=== PATIENT | male | born 1935 | race Caucasian/White ===

== ENCOUNTER 2017-01-25 01:26 | Emergency (ER) | payer MEDICARE, OTHER ==
[2017-01-25 01:46] VITALS: BP 174/89
--- NOTE | 2017-01-25 01:51 | EDM.PDOC ---
ED HPI GENERAL MEDICAL PROBLEM - General Chief Complaint: Gastrointestinal Problem Stated Complaint: CONSTIPATION Time Seen by Provider: 01/25/17 01:32 Source of Information: Reports: Patient, Family () History Limitations: Reports: No Limitations - History of Present Illness INITIAL COMMENTS - FREE TEXT/NARRATIVE: Patient presents with constipation and fecal obstruction. He has gone three days without a bowel movement and is getting very uncomfortable. It also seems to be making urination more difficult. He has some fullness and discomfort in lower abdomen. He denies fever. He has been taking hydrocodone which he thinks is the problem. He drank a bottle of mag citrate today but hasn't passed stool. - Related Data Allergies Allergy/AdvReac Type Severity Reaction Status Date / Time gluten Allergy Other Verified 01/13/16 12:46 Home Meds: Home Meds Omeprazole 20 mg PO Q48H 03/23/14 [History] Cholecalciferol (Vitamin D3) [Vitamin D] 5,000 unit PO DAILY 01/13/16 [History] Gabapentin [Neurontin] 300 mg PO TID 01/13/16 [History] Lipase/Protease/Amylase [Zenpep DR 25,000 Unit] 3 cap PO TIDMEALS 01/13/16 [ History] Magnesium Oxide [Magnesium] 1 tab PO DAILY 01/13/16 [History] oxyCODONE HCl/Acetaminophen [Percocet 10-325 mg Tablet] 1 tab PO Q6H PRN [History] Sertraline HCl [Zoloft] 100 mg PO DAILY #90 tablet 01/14/16 [Rx] Past Medical History HEENT History: Reports: Impaired Vision, Sinusitis Respiratory History: Reports: Sleep Apnea, Other (See Below) Other Respiratory History: Sinus Gastrointestinal History: Reports: Chronic Constipation, Pancreatitis Genitourinary History: Reports: Prostate Disorder, Other (See Below) Other Genitourinary History: urinary frequency Musculoskeletal History: Reports: Arthritis, Gout, Osteoarthritis Psychiatric History: Reports: Anxiety - Infectious Disease History Infectious Disease History: Reports: Measles - Past Surgical History GI Surgical History: Reports: Cholecystectomy, Colonoscopy, Other (See Below) Musculoskeletal Surgical History: Reports: Carpal Tunnel, Shoulder Replacement Social & Family History - Family History HEENT: Reports: Cataract Musculoskeletal: Reports: Arthritis Oncologic: Reports: Bone, Lung, Other (See Below) Other Oncologic Family History: uncle several years ago - Tobacco Use Smoking Status *Q: Never Smoker Used Tobacco, but Quit: Yes Month Tobacco Last Used: 1949's Second Hand Smoke Exposure: No - Alcohol Use Days Per Week of Alcohol Use: 1 Number of Drinks Per Day: 1 Total Drinks Per Week: 1 - Recreational Drug Use Recreational Drug Use: No - Living Situation & Occupation Living situation: Reports: , with Spouse Occupation: Retired ED ROS GENERAL - Review of Systems Review Of Systems: See Below Constitutional: Denies: Fever, Weakness HEENT: Reports: No Symptoms Respiratory: Denies: Shortness of Breath Cardiovascular: Denies: Chest Pain, Lightheadedness, Syncope GI/Abdominal: Reports: Constipation. Denies: Diarrhea, Nausea, Vomiting : Reports: Urinary Retention. Denies: Dysuria Musculoskeletal: Reports: No Symptoms Skin: Denies: Cyanosis, Jaundice, Mottled, Pallor, Diaphoresis Neurological: Reports: Confusion (his says that tonight he has been a little confused and that this happened in the past when he had bad constipation and he took Miralax.). Denies: Seizure, Syncope, Trouble Speaking, Difficulty Walking, Weakness Psychiatric: Denies: Agitation, Anxiety ED EXAM, GI/ABD - Physical Exam Exam: See Below Exam Limited By: No Limitations General Appearance: Alert, WD/WN, No Apparent Distress Eyes: Bilateral: Normal Appearance, EOMI Ears: Normal External Exam, Hearing Grossly Normal Nose: Normal Inspection, No Blood Throat/Mouth: Normal Lips, Normal Voice, No Airway Compromise Head: Atraumatic, Normocephalic Neck: Full Range of Motion Respiratory/Chest: No Respiratory Distress, Lungs Clear, Normal Breath Sounds Cardiovascular: Regular Rate, Rhythm, No Murmur GI/Abdominal: Normal Bowel Sounds, Tenderness (across low abdomen with some distention) Rectal (Males) Exam: Bloody Stool (slightly blood tinged right at rectum but further up the blood was not evident), Decreased Rectal Tone (mildly), Fecal Impaction, Hemorrhoids, Other (the digital extraction was quite uncomfortable for the patient and I wasn't able to remove sufficient stool to examine prostate ; then he wanted to try to go to bathroom to pass stool but wasn't able; we proceeded with enema at that point.) Extremities: Normal Range of Motion Neurological: Alert, Oriented, No Motor/Sensory Deficits Psychiatric: Normal Affect, Normal Mood Skin Exam: Warm, Dry, Intact, Normal Color, No Rash Course - Re-Assessments/Exams Free Text/Narrative Re-Assessment/Exam: 01/25/17 02:35 With the enema patient was eventually able to move a large amount of firm chunks of stool and felt much better. There was some bleeding evidently from internal hemorrhoids but minimal. Patient remained stable throughout ER course and was discharged to home. He has an appointment with Dr. Sy in the next few days. Departure - Departure Time of Disposition: 02:33 Disposition: Home, Self-Care 01 Condition: good Clinical Impression: Constipation due to pain medication, Fecal impaction in rectum - Discharge Information Instructions: Constipation, Adult, [id number] Forms: ED Department Discharge Additional Instructions: 1. Continue the metamucil and drink 8 cups of water daily. 2. Follow up with Dr. Sy in a few days to recheck and discuss recommendations for your constipation. 3. Return to ER as needed.
[2017-01-25] MEDS ORDERED: Ondansetron 4 MG Tab.DIS PO ONE (02:17)
[2017-01-25] MEDS ORDERED: Ondansetron 4 MG Tab.DIS ONE (02:18)
== END 2017-01-25 02:40 | disposition home or self-care (01) ==
LOC: KA.ED 01:26
DX: K59.03 Drug induced constipation (principal); K56.41 Fecal impaction; M19.90 Unspecified osteoarthritis, unspecified site; F41.9 Anxiety disorder, unspecified; Z91.048 Other nonmedicinal substance allergy status; Z79.899 Other long term (current) drug therapy; Z90.49 Acquired absence of other specified parts of digestive tract
CPT/HCPCS: 99283; A9270; 99282

== ENCOUNTER 2017-12-30 17:10 | Emergency (ER) | payer MEDICARE, OTHER ==
[2017-12-30 17:20] VITALS: BP 136/74
[2017-12-30] MEDS ORDERED: Sodium Chloride 0.9% 5 ML Syringe FLUSH PRN (17:20)
--- NOTE | 2017-12-30 17:29 | EDM.PDOC ---
ED HPI GENERAL MEDICAL PROBLEM - General Chief Complaint: Abdominal Pain Stated Complaint: ABDOMINAL PAIN Time Seen by Provider: 12/30/17 17:19 Source of Information: Reports: Patient, Family History Limitations: Reports: No Limitations - History of Present Illness INITIAL COMMENTS - FREE TEXT/NARRATIVE: Onset of this event Sunday night after eating coleslaw made by his . She had eaten some of it but not to the same extent. 1 questions he states he's had several events of this undergoing multiple colonoscopies as well as scans with no significant findings. He denies fever or chills. He experienced normal bowel movement thinking he was possibly getting constipated so he use MiraLAX which then lead to 2 or 3 loose diarrhea type stools. Pain has persisted for the most part steady since Sunday leading to poor intake of food and fluid. Denies any urination problems. Has had previous workups with no significant findings. Pain has been predominant to the left lower quadrant with minimal radiation. Onset: Gradual Onset Date: 12/28/17 Onset Time: 18:00 Duration: Day(s): Location: Reports: Abdomen Quality: Reports: Pressure, Same as Previous Episode Severity: Moderate Improves with: Reports: None Worsens with: Reports: Eating, Movement Abdomen Pain Score (Numeric/FACES): 10 - Related Data Allergies Allergy/AdvReac Type Severity Reaction Status Date / Time gluten Allergy Other Verified 01/25/17 07:14 Home Meds: Home Meds Omeprazole 20 mg PO Q48H 03/23/14 [History] Gabapentin [Neurontin] 300 mg PO TID 01/13/16 [History] Polyethylene Glycol 3350 [MiraLAX] 17 gm PO DAILY PRN 12/30/17 [History] oxyCODONE 1 - 1.5 tab PO DAILY PRN 12/30/17 [History] Past Medical History HEENT History: Reports: Impaired Vision, Sinusitis Respiratory History: Reports: Sleep Apnea, Other (See Below) Other Respiratory History: Sinus Gastrointestinal History: Reports: Chronic Constipation, Pancreatitis, Other ( See Below) (Recurrent abdominal discomfort) Genitourinary History: Reports: Prostate Disorder, Other (See Below) Other Genitourinary History: urinary frequency Musculoskeletal History: Reports: Arthritis, Gout, Osteoarthritis Psychiatric History: Reports: Anxiety - Infectious Disease History Infectious Disease History: Reports: Measles - Past Surgical History Head Surgeries/Procedures: Reports: None HEENT Surgical History: Reports: None Cardiovascular Surgical History: Reports: None Respiratory Surgical History: Reports: None GI Surgical History: Reports: Cholecystectomy, Colonoscopy, EGD, Other (See Below) Musculoskeletal Surgical History: Reports: Carpal Tunnel, Shoulder Replacement - Past Imaging History Past Imaging History: Reports: CAT Scan, MRI Social & Family History - Family History HEENT: Reports: Cataract Musculoskeletal: Reports: Arthritis Oncologic: Reports: Bone, Lung, Other (See Below) Other Oncologic Family History: uncle several years ago - Tobacco Use Smoking Status *Q: Never Smoker Used Tobacco, but Quit: Yes Month/Year Tobacco Last Used: Second Hand Smoke Exposure: No - Caffeine Use Caffeine Use: Reports: None - Alcohol Use Days Per Week of Alcohol Use: 1 Number of Drinks Per Day: 1 Total Drinks Per Week: 1 - Recreational Drug Use Recreational Drug Use: No - Living Situation & Occupation Living situation: Reports: , with Spouse Occupation: Retired ED ROS GENERAL - Review of Systems Review Of Systems: See Below Constitutional: Reports: No Symptoms HEENT: Reports: No Symptoms Respiratory: Reports: No Symptoms Cardiovascular: Reports: No Symptoms Endocrine: Reports: No Symptoms GI/Abdominal: Reports: Abdominal Pain, Constipation, Diarrhea. Denies: Nausea, Stool Incontinence, Vomiting : Reports: No Symptoms Musculoskeletal: Reports: No Symptoms Skin: Reports: No Symptoms Neurological: Reports: No Symptoms Psychiatric: Reports: No Symptoms Hematologic/Lymphatic: Reports: No Symptoms Immunologic: Reports: No Symptoms ED EXAM, GI/ABD - Physical Exam Exam: See Below Text/Narrative:: Moderate distress stating this is very similar to previous episodes. states he did eat coleslaw previously which had caused irritation that resolved. Has been placed on oxycodone by Dr. Yossi Torres which led to constipation then was using stool softener. Barry somewhat constipated today had bowel movement was concerned was becoming constipated at which time he took MiraLAX which then led to diarrhea of 3 events. Denies Urinary issues or change in abdominal pressure pain with bowel movement urination or prior to either event Exam Limited By: No Limitations General Appearance: Alert, WD/WN, Mild Distress Ears: Normal External Exam, Normal Canal Nose: Normal Inspection, Normal Mucosa Throat/Mouth: Normal Inspection, Normal Lips, Normal Oropharynx Head: Atraumatic, Normocephalic Neck: Normal Inspection Respiratory/Chest: No Respiratory Distress, Lungs Clear Cardiovascular: Normal Peripheral Pulses, No Murmur GI/Abdominal Exam: Soft, No Distention, Tender (Tenderness is noted to the left lower quadrant nonradiating. Remainder of abdomen is benign). No: Non-Tender, Distended, Rigid, Rebound (Male) Exam: Deferred Back Exam: Normal Inspection Extremities: Normal Inspection, Normal Range of Motion Neurological: Alert, Oriented, CN II-XII Intact Psychiatric: Normal Affect Skin Exam: Warm, Dry, Intact Course - Vital Signs Last Recorded V/S: Last Vital Signs Temp 37.3 C 12/30/17 17:14 Pulse 79 12/30/17 17:14 Resp 22 H 12/30/17 17:14 BP 136/74 12/30/17 17:14 Pulse Ox 97 12/30/17 17:14 - Orders/Labs/Meds Orders: Active Orders 24 hr Category Date Time Status Abdomen Pelvis w Cont [CT] Stat Exams 12/30/17 17:21 Taken Sodium Chloride 0.9% [Normal Saline] 1,000 ml Med 12/30/17 18:00 Active IV ASDIRECTED Sodium Chloride 0.9% [Syrex Flush] Med 12/30/17 17:20 Active 5 ml FLUSH Q8HR PRN Saline Lock Insert [OM.PC] Routine Oth 12/30/17 17:20 Ordered Medication Orders Sodium Chloride (Normal Saline) 1,000 mls @ 150 mls/hr IV ASDIRECTED ADRIANE Last Admin: 12/30/17 17:50 Dose: 150 mls/hr Sodium Chloride (Syrex Flush) 5 ml FLUSH Q8HR PRN PRN Reason: Keep Vein Open Labs: Laboratory Tests 12/30/17 12/30/17 12/30/17 Range/Units 17:53 17:53 17:53 WBC 8.1 (5.0-10.0) 10^3/uL RBC 4.89 (4.50-6.00) 10^6/uL Hgb 15.6 D (13.0-17.0) g/dL Hct 46.6 (40.0-52.0) % MCV 95.4 H (82.0-92.0) fL MCH 32.0 H (27.0-31.0) pg MCHC 33.5 (32.0-36.0) g/dL RDW 12.9 (11.5-14.5) % Plt Count 155 (150-300) 10^3/uL MPV 7.7 (7.4-10.4) fL Neut % (Auto) 61.4 (50.0-70.0) % Lymph % (Auto) 30.5 (20.0-40.0) % [place] % (Auto) 6.6 (2.0-8.0) % Eos % (Auto) 0.6 L (1.0-3.0) % Baso % (Auto) 0.9 (0.0-1.0) % Neut # (Auto) 5.0 (2.5-7.0) 10^3/uL Lymph # (Auto) 2.5 (1.0-4.0) 10^3/uL [place] # (Auto) 0.5 (0.1-0.8) 10^3/uL Eos # (Auto) 0.0 L (0.1-0.3) 10^3/uL Baso # (Auto) 0.1 (0.0-0.1) 10^3/uL Sodium 144 (136-145) mmol/L Potassium 4.1 (3.3-5.3) mmol/L Chloride 104 (98-115) mmol/L Carbon Dioxide 25.9 (21.0-32.0) mmol/L BUN 16 (6-25) mg/dL Creatinine 1.03 (0.51-1.17) mg/dL Est Cr Clr Drug Dosing 57.09 mL/min Estimated GFR (MDRD) > 60 mL/min Glucose 125 H (70-110) mg/dL Lactic Acid 1.9 (0.4-2.0) mmol/L Calcium 9.2 (8.7-10.3) mg/dL Total Bilirubin 0.9 (0.2-1.0) mg/dL AST 21 (15-37) U/L ALT 28 (12-78) U/L Alkaline Phosphatase 74 (46-116) IU/L Total Protein 7.7 (6.4-8.2) g/dL Albumin 3.96 (3.00-4.80) g/dL Amylase 44 (25-125) U/L Lipase 52 L (73-393) U/L Meds: Medications Generic Name Dose Route Start Last Admin Trade Name Freloki PRN Reason Stop Dose Admin Sodium Chloride 1,000 mls @ 150 mls/hr 12/30/17 18:00 12/30/17 17:50 Normal Saline IV 150 mls/hr ASDIRECTED ADRIANE Administration Sodium Chloride 5 ml 12/30/17 17:20 Syrex Flush FLUSH Q8HR PRN Keep Vein Open Discontinued Medications Generic Name Dose Route Start Last Admin Trade Name Freq PRN Reason Stop Dose Admin Morphine Sulfate 4 mg 12/30/17 18:02 12/30/17 18:10 Morphine IVPUSH 12/30/17 18:03 4 mg ONETIME ONE Administration Morphine Sulfate 4 mg 12/30/17 19:43 12/30/17 20:00 Morphine IVPUSH 12/30/17 19:44 4 mg ONETIME ONE Administration - Re-Assessments/Exams Free Text/Narrative Re-Assessment/Exam: 12/30/17 18:09 Ambulated to the bathroom to urinate states his pain improved slightly. Ambulated back with no difficulty and is again sipping on oral contrast. Gives rating of 8 on scale of 10 for pain. Is able to converse freely and is seated with no significant motion colicky discomfort. Free Text/Narrative Re-Assessment/Exam: 12/30/17 19:17 Pain improved at this time prior to transport to CT scanner to a 3 or 4. Assessed to be in the same left lower quadrant but only noted with deep palpation. Free Text/Narrative Re-Assessment/Exam: 12/30/17 20:23 Pain continued to improve/stabilize and when discussing report of no significant findings was offered hospitalization. She declines we'll continue with oral meds and contact Dr. Yossi torres office in the morning Departure - Departure Time of Disposition: 20:26 Disposition: Home, Self-Care 01 Condition: Good Clinical Impression: Abdominal pain - Discharge Information Instructions: Constipation, Adult, [id number] Forms: ED Department Discharge Care Plan Goals: Drink more water. CAT scan is provided for you. We will send copies of all lab work and this report to Dr. Torres office. Continue with your oral pain medicine but make sure you take stool softener or high fiber diet along with increased water intake Continue your medications with plenty of water at all times. - Problem List & Annotations (1) Abdominal pain SNOMED Code(s): 98508832 Code(s): R10.9 - UNSPECIFIED ABDOMINAL PAIN Status: Acute Priority: High Current Visit: Yes Qualifiers: Abdominal location: left lower quadrant Qualified Code(s): R10.32 - Left lower quadrant pain - Problem List Review Problem List Initiated/Reviewed/Updated: Yes - My Orders Last 24 Hours: My Active Orders 12/30/17 17:20 Sodium Chloride 0.9% [Syrex Flush] 5 ml FLUSH Q8HR PRN Saline Lock Insert [OM.PC] Routine 12/30/17 17:21 Abdomen Pelvis w Cont [CT] Stat 12/30/17 18:00 Sodium Chloride 0.9% [Normal Saline] 1,000 ml IV ASDIRECTED - Assessment/Plan Last 24 Hours: My Active Orders 12/30/17 17:20 Sodium Chloride 0.9% [Syrex Flush] 5 ml FLUSH Q8HR PRN Saline Lock Insert [OM.PC] Routine 12/30/17 17:21 Abdomen Pelvis w Cont [CT] Stat 12/30/17 18:00 Sodium Chloride 0.9% [Normal Saline] 1,000 ml IV ASDIRECTED Plan: Drink more water. CAT scan is provided for you. We will send copies of all lab work and this report to Dr. Torres office. Continue with your oral pain medicine but make sure you take stool softener or high fiber diet along with increased water intake.
[2017-12-30] MEDS: Sodium Chloride 0.9% 1,000 ML IV SCH (17:50)
[2017-12-30] MEDS: Morphine 4 MG/ML Syringe IVPUSH ONE ×2 (18:10→20:00)
[2017-12-30 18:33] LABS: CHLORIDE,CL 104 mmol/L (98-115); SODIUM,NA 144 mmol/L (136-145)
[2017-12-30] MEDS ORDERED: Iopamidol 612 MG/ML 75 ML Bottle IV ONE (19:10)
[2017-12-31] MEDS: Sodium Chloride 0.9% 50 ML IV SCH (09:18)
[2017-12-31] MEDS: Iopamidol 612 MG/ML 75 ML Bottle IV ONE (09:18)
== END 2017-12-30 20:25 | disposition home or self-care (01) ==
LOC: KA.ED 17:10
DX: R10.32 Left lower quadrant pain (principal); Z91.048 Other nonmedicinal substance allergy status; Z79.899 Other long term (current) drug therapy; Z87.891 Personal history of nicotine dependence
CPT/HCPCS: 74177; 80053; 82150; 83605; 83690; 85025; 96361; 96374; 96376; 99284; J2270; J7030; J7050; Q9967

== ENCOUNTER 2018-04-20 20:19 | Emergency (ER) | payer MEDICARE, OTHER ==
[2018-04-20 20:26] VITALS: BP 140/60
[2018-04-20] MEDS: Cephalexin 250 MG Cap PO ONE ×2 (20:53→21:03)
--- NOTE | 2018-04-20 20:59 | EDM.PDOC ---
ED HPI GENERAL MEDICAL PROBLEM - General Chief Complaint: General Stated Complaint: ?INFECTION Time Seen by Provider: 04/20/18 20:51 Source of Information: Reports: Patient History Limitations: Reports: No Limitations - History of Present Illness INITIAL COMMENTS - FREE TEXT/NARRATIVE: Patient is an 83-year-old gentleman who presents to the emergency department this evening with a complaint of lower back incision site redness. Patient states that he had an electrical stimulation pain device implanted 3 weeks ago in lower back. He noticed a little more discomfort 2 days ago and some redness developed around the incision sites. He spoke to the surgical physician restaurant assistant manager today and was advised to present to emergency department to have it evaluated. Patient denies fever, trauma to site, nausea, vomiting or rash. Onset: Gradual Duration: Day(s): Location: Reports: Back Quality: Reports: Ache Severity: Mild Improves with: Reports: None Worsens with: Reports: None Associated Symptoms: Reports: No Other Symptoms. Denies: Fever/Chills - Related Data Allergies Allergy/AdvReac Type Severity Reaction Status Date / Time gluten Allergy Other Verified 04/20/18 20:32 Home Meds: Home Meds Omeprazole 20 mg PO DAILY 03/23/14 [History] Gabapentin [Neurontin] 300 mg PO TID 01/13/16 [History] Polyethylene Glycol 3350 [MiraLAX] 17 gm PO DAILY 12/30/17 [History] oxyCODONE 1 - 1.5 tab PO DAILY PRN 12/30/17 [History] Past Medical History HEENT History: Reports: Impaired Vision, Sinusitis Respiratory History: Reports: Sleep Apnea, Other (See Below) Other Respiratory History: Sinus Gastrointestinal History: Reports: Chronic Constipation, Pancreatitis, Other ( See Below) (Recurrent abdominal discomfort) Genitourinary History: Reports: Prostate Disorder, Other (See Below) Other Genitourinary History: urinary frequency Musculoskeletal History: Reports: Arthritis, Gout, Osteoarthritis Psychiatric History: Reports: Anxiety - Infectious Disease History Infectious Disease History: Reports: Measles - Past Surgical History Head Surgeries/Procedures: Reports: None HEENT Surgical History: Reports: None Cardiovascular Surgical History: Reports: None Respiratory Surgical History: Reports: None GI Surgical History: Reports: Cholecystectomy, Colonoscopy, EGD, Other (See Below) Musculoskeletal Surgical History: Reports: Carpal Tunnel, Shoulder Replacement - Past Imaging History Past Imaging History: Reports: CAT Scan, MRI Social & Family History - Family History HEENT: Reports: Cataract Musculoskeletal: Reports: Arthritis Oncologic: Reports: Bone, Lung, Other (See Below) Other Oncologic Family History: uncle several years ago - Tobacco Use Smoking Status *Q: Never Smoker - Caffeine Use Caffeine Use: Reports: None - Alcohol Use Days Per Week of Alcohol Use: 1 Number of Drinks Per Day: 1 Total Drinks Per Week: 1 - Recreational Drug Use Recreational Drug Use: No - Living Situation & Occupation Living situation: Reports: , with Spouse Occupation: Retired ED ROS GENERAL - Review of Systems Review Of Systems: ROS reveals no pertinent complaints other than HPI. Constitutional: Reports: No Symptoms HEENT: Reports: No Symptoms Respiratory: Reports: No Symptoms Cardiovascular: Reports: No Symptoms Endocrine: Reports: No Symptoms GI/Abdominal: Reports: No Symptoms : Reports: No Symptoms Musculoskeletal: Reports: No Symptoms Skin: Reports: Erythema (two incision sites on the back) Neurological: Reports: No Symptoms Psychiatric: Reports: No Symptoms Hematologic/Lymphatic: Reports: No Symptoms Immunologic: Reports: No Symptoms ED EXAM, GENERAL - Physical Exam Exam: See Below Exam Limited By: No Limitations General Appearance: Alert, WD/WN, No Apparent Distress Throat/Mouth: Normal Inspection, Normal Oropharynx, No Airway Compromise Respiratory/Chest: No Respiratory Distress, Lungs Clear Cardiovascular: Regular Rate, Rhythm GI/Abdominal: Normal Bowel Sounds, Soft, Non-Tender Back Exam: Other (one Vertical,one horizontal incision sites approximated well At lumbar region) Extremities: Normal Inspection Neurological: Alert, Oriented, Normal Cognition Psychiatric: Normal Affect, Normal Mood Skin Exam: Warm, Dry, Intact, No Rash, Erythema (At 2 incision sites of lower back. Border erythema, without hematoma, discharge, or dehiscence.) Lymphatic: No Adenopathy Course - Vital Signs Last Recorded V/S: Last Vital Signs Temp 97.1 F 04/20/18 20:23 Pulse 85 04/20/18 20:23 Resp 18 04/20/18 20:23 BP 140/60 04/20/18 20:23 Pulse Ox 96 04/20/18 20:23 - Orders/Labs/Meds Orders: Active Orders 24 hr Category Date Time Status cephALEXin [Keflex] Med 04/20/18 20:53 Once 500 mg PO ONETIME ONE Meds: Medications Discontinued Medications Generic Name Dose Route Start Last Admin Trade Name Freq PRN Reason Stop Dose Admin Cephalexin 500 mg 04/20/18 20:51 Keflex PO 04/20/18 20:52 ONETIME ONE - Re-Assessments/Exams Free Text/Narrative Re-Assessment/Exam: 04/20/18 20:59 Patient afebrile, nontoxic appearing, vital signs stable. Patient given 500 mg Keflex here, 3 500 mg Keflex to go and take tomorrow. He was given a prescription for Keflex 7 days. Patient will follow-up with pain management for evaluation as scheduled in one week Departure - Departure Time of Disposition: 21:00 Disposition: Home, Self-Care 01 Condition: Good Clinical Impression: Cellulitis Qualifiers: Site of cellulitis: trunk Site of cellulitis of trunk: back Qualified Code(s): L03.312 - Cellulitis of back [any part except buttock] - Discharge Information Instructions: Cellulitis, Adult, [id number] Referrals: Filipe Torres MD [Primary Care Provider] - Additional Instructions: Follow-up as scheduled with pain management surgical team. Return to emergency sooner if symptoms continue or worsen. - My Orders Last 24 Hours: My Active Orders 04/20/18 20:53 cephALEXin [Keflex] 500 mg PO ONETIME ONE - Assessment/Plan Last 24 Hours: My Active Orders 04/20/18 20:53 cephALEXin [Keflex] 500 mg PO ONETIME ONE
[2018-04-20] MEDS: Cephalexin 250 MG Cap ONE ×3 (21:03)
== END 2018-04-20 21:10 | disposition home or self-care (01) ==
LOC: KA.ED 20:19
DX: L03.312 Cellulitis of back [any part except buttock and flank] (principal); Z79.899 Other long term (current) drug therapy; Z88.8 Allergy status to other drugs, medicaments and biological substances
CPT/HCPCS: 99283; A9270

== ENCOUNTER 2019-03-18 10:35 | Inpatient (IN) | payer MEDICARE, OTHER ==
[2019-03-18] MEDS ORDERED: Omeprazole 20 MG Cap.CR PO PRN (17:14)
[2019-03-18] MEDS ORDERED: Bisacodyl 10 MG Supp RECTAL PRN (17:14)
[2019-03-18] MEDS ORDERED: oxyCODONE 5 MG Tab PO PRN (17:14)
[2019-03-18] MEDS ORDERED: traMADol 50 MG Tab PO PRN (17:14)
[2019-03-18] MEDS ORDERED: Melatonin 3 MG Tab PO PRN (17:14)
[2019-03-18] MEDS ORDERED: Acetaminophen 325 MG Tab PO PRN (17:14)
[2019-03-18] MEDS ORDERED: Bisacodyl 5 MG Tab PO PRN (17:14)
[2019-03-18] MEDS ORDERED: Nitroglycerin 0.4 MG Tab.SL SL PRN (17:14)
--- NOTE | 2019-03-18 17:27 | PCM.HP ---
H&P History of Present Illness - General Date of Service: 03/18/19 Admit Problem/Dx: Admission Diagnosis/Problem Admission Diagnosis/Problem Debility Source of Information: Patient, Old Records - History of Present Illness Initial Comments - Free Text/Narative: Mr. Montoya is here for swing bed admission following recent acute and inpatient rehab hospitalizations for NSTEMI, acute CVA, and blood loss anemia with associated debility. Prior to recent medical setbacks, he was residing independently in [place], [place] , with his . His prior chronic medical conditions included HTN, HLD, GERD, and RLS. On 01/21/19, he underwent a nuclear stress test for chest pain, which prompted 02/27/19 cardiac catheterization resulting in PCI of the LCx and OM. He then was seen in the [facility] ED on 03/03/19 for recurrent chest pain and subsequently transferred to [facility] for ongoing management of NSTEMI and iron deficiency anemia related to groin hematoma. After admission, he developed acute nausea, imbalance, and double vision and was noted to have gaze palsy. 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 No t-PA was given. He was continued on ASA and statin for CVA prevention along with Brilinta given recent PCI. Loop recroder was implanted to evaluate for atrial fibrillation, which would prompt recommendation for anticoagulation. He was started on diazepam 1He was transferred to inpatient rehab unit for rehabilitation, where good progress was made and decision was made for transfer for ongoing rehabilitation needs in swing bed at [facility]. He states he is overall feeling well today. Continues to have blurry vision, but denies other neurological complaints. Nausea controlled. Feels his strength is slowly getting back to baseline. Desires to return to home independently when able. - Related Data Allergies/Adverse Reactions: Allergies Allergy/AdvReac Type Severity Reaction Status Date / Time gluten Allergy Other Verified 03/17/19 16:36 Home Medications: Home Meds Omeprazole 20 mg PO DAILY PRN 03/23/14 [History] Polyethylene Glycol 3350 [MiraLAX] 17 gm PO DAILY 12/30/17 [History] Acetaminophen 650 mg PO Q4H PRN 03/17/19 [History] Aspirin [Halfprin] 81 mg PO DAILY 03/17/19 [History] Cholecalciferol (Vitamin D3) [Vitamin D3] 2,000 unit PO DAILY 03/17/19 [History] Diazepam [Valium] 1 mg PO BID 03/17/19 [History] Docusate Sodium [Colace] 100 mg PO BID 03/17/19 [History] Ferrous Sulfate 325 mg PO BID 03/17/19 [History] Melatonin 3 mg PO BEDTIME PRN 03/17/19 [History] Metoprolol Tartrate [Lopressor] 25 mg PO Q12H 03/17/19 [History] Multivitamins,Ther w-Minerals [Multivitamins with Minerals HP] 1 each PO DAILY 03/17/19 [History] Nitroglycerin 0.4 mg SL ASDIRECTED PRN 03/17/19 [History] Oxybutynin 5 mg PO BEDTIME 03/17/19 [History] Ticagrelor [Brilinta] 90 mg PO BID 03/17/19 [History] atorvaSTATin [Lipitor] 20 mg PO DAILY 03/17/19 [History] oxyCODONE 5 mg PO TID PRN 03/17/19 [History] rOPINIRole [Requip] 0.5 mg PO BID 03/17/19 [History] Bisacodyl [Dulcolax] 10 mg PO DAILY PRN 03/18/19 [History] Bisacodyl [Dulcolax] 10 mg RC DAILY PRN 03/18/19 [History] traMADol [Ultram] 50 mg PO Q6H PRN 03/18/19 [History] Past Medical History HEENT History: Reports: Impaired Vision, Sinusitis Cardiovascular History: Reports: Hypertension, Stents, Other (See Below) Other Cardiovascular History: Loop Monitor Respiratory History: Reports: Sleep Apnea, Other (See Below) Other Respiratory History: Sinus Gastrointestinal History: Reports: Chronic Constipation, Pancreatitis Genitourinary History: Reports: Prostate Disorder, Other (See Below) Other Genitourinary History: urinary frequency Musculoskeletal History: Reports: Arthritis, Gout, Osteoarthritis Neurological History: Reports: CVA Psychiatric History: Reports: Anxiety - Infectious Disease History Infectious Disease History: Reports: Measles - Past Surgical History Head Surgeries/Procedures: Reports: None HEENT Surgical History: Reports: None Other HEENT Surgeries/Procedures: double vision d/t stroke Cardiovascular Surgical History: Reports: None, Other (See Below) Other Cardiovascular Surgeries/Procedures: Angiogram 02/27/2019 with stent placement, Reveal loop monitor insertion on 03/07/19. 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, sites lower back R lat aspect and L lower back end architect to spine - proceedur Musculoskeletal Surgical History: Reports: Carpal Tunnel, Shoulder Replacement - Past Imaging History Past Imaging History: Reports: CAT Scan, MRI Social & Family History - Family History HEENT: Reports: Cataract Musculoskeletal: Reports: Arthritis Oncologic: Reports: Bone, Lung, Other (See Below) Other Oncologic Family History: uncle several years ago - Caffeine Use Caffeine Use: Reports: None Other Caffeine Use: regular - Living Situation & Occupation Living situation: Reports: , with Spouse Occupation: Retired H&P Review of Systems - Review of Systems: Review Of Systems: See Below General: Reports: Weakness. Denies: Fever, Chills, Decreased Appetite HEENT: Reports: Visual Changes. Denies: Dysphasia, Headaches, Rhinitis, Sore Throat, Vertigo Pulmonary: Denies: Shortness of Breath, Wheezing, Cough, Sputum Cardiovascular: Denies: Chest Pain, Palpitations, Orthopnea, Edema Gastrointestinal: Reports: Nausea (controlled). Denies: Abdominal Pain, Black Stool, Bloody Stool, Constipation, Diarrhea, Vomiting Musculoskeletal: Denies: Neck Pain, Shoulder Pain, Back Pain, Leg Pain, Joint Swelling Skin: Reports: Bruising. Denies: Rash, Wound Psychiatric: Denies: Confusion, Depression, Anxiety Neurological: Denies: Headache, Numbness, Tingling Exam - Exam Exam: See Below - Vital Signs Vital Signs: Last Vital Signs Temp 36.5 C 03/18/19 15:25 Pulse 64 03/18/19 15:25 Resp 20 03/18/19 15:25 BP 106/63 03/18/19 15:25 Pulse Ox 99 03/18/19 15:25 Weight: 80.785 kg - Exam Physical Exam Comments:: GENERAL: Well-appearing elderly white male sitting in bedside couch in no acute distress. HEENT: Normocephalic, atraumatic. Conjunctiva clear. Nares patent without discharge. Mucous membranes moist, posterior pharynx unremarkable. NECK: Supple, no masses. CV: Regular rate and rhythm, no murmurs, rubs, or gallops. 2+ radial pulses. PULMONARY: Normal effort, clear to auscultation bilaterally, no wheezes, rales, or rhonchi. ABDOMEN: Positive bowel sounds, soft, nontender, nondistended. EXTREMITIES: No edema, cyanosis, or clubbing. MUSCULOSKELETAL: Moves all extremities well. NEUROLOGICAL: CN II-XII intact aside from sluggish EOMI most notably in abduction. Normal muscle bulk, normal muscle tone, muscle strength 5/5. Sensation intact in all extremities to touch. Gait without abnormality. DERMATOLOGIC: No rashes or suspicious lesions in exposed areas. PSYCHIATRIC: Alert, interactive, appropriate affect. Problem List Initiated/Reviewed/Updated: Yes Orders Last 24hrs: Active Orders 24 hr Category Date Time Status Patient Status [ADT] Routine ADT 03/18/19 17:19 Ordered Oxygen Therapy [RC] PRN Care 03/18/19 17:19 Ordered Up With Assistance [RC] ASDIRECTED Care 03/18/19 17:19 Ordered VTE/DVT Education [RC] PER UNIT ROUTINE Care 03/18/19 17:19 Ordered Vital Signs [RC] PER UNIT ROUTINE Care 03/18/19 17:19 Ordered Gluten Free Diet [DIET] Diet 03/18/19 Dinner Active Heart Healthy Diet [DIET] Diet 03/18/19 Dinner Active Acetaminophen [Tylenol] Med 03/18/19 17:14 Ordered 650 mg PO Q4H PRN Aspirin [Halfprin] Med 03/19/19 09:00 Ordered 81 mg PO DAILY Bisacodyl [Dulcolax] Med 03/18/19 17:14 Ordered 10 mg PO DAILY PRN Bisacodyl [Dulcolax] Med 03/18/19 17:14 Ordered 10 mg RECTAL DAILY PRN Cholecalciferol (Vitamin D3) [Vitamin D3] Med 03/19/19 09:00 Ordered 2,000 unit PO DAILY Diazepam [Valium] Med 03/18/19 21:00 Ordered 1 mg PO BID Docusate Sodium [Colace] Med 03/18/19 21:00 Ordered 100 mg PO BID Ferrous Sulfate Med 03/18/19 21:00 Ordered 325 mg PO BID Melatonin Med 03/18/19 17:14 Ordered 3 mg PO BEDTIME PRN Metoprolol Tartrate [Lopressor] Med 03/18/19 21:00 Ordered 25 mg PO Q12H Multivitamins,Ther w-Minerals [Multivitamins with Med 03/19/19 09:00 Ordered Minerals HP] 1 each PO DAILY Nitroglycerin [Nitrostat] Med 03/18/19 17:14 Ordered 0.4 mg SL ASDIRECTED PRN Omeprazole [Omeprazole] Med 03/18/19 17:14 Ordered 20 mg PO DAILY PRN Oxybutynin Med 03/18/19 21:00 Ordered 5 mg PO BEDTIME Polyethylene Glycol 3350 [MiraLAX] Med 03/19/19 09:00 Ordered 17 gm PO DAILY Ticagrelor [Brilinta] Med 03/18/19 21:00 Ordered 90 mg PO BID atorvaSTATin [Lipitor] Med 03/19/19 09:00 Ordered 20 mg PO DAILY oxyCODONE Med 03/18/19 17:14 Ordered 5 mg PO TID PRN rOPINIRole [Requip] Med 03/18/19 21:00 Ordered 0.5 mg PO BID traMADol [Ultram] Med 03/18/19 17:14 Ordered 50 mg PO Q6H PRN Resuscitation Status Routine Resus Stat 03/18/19 13:26 Ordered Medication Orders Acetaminophen (Tylenol) 650 mg PO Q4H PRN PRN Reason: Pain (mild 1-3) Aspirin (Halfprin) 81 mg PO DAILY [facility] Bisacodyl (Dulcolax) 10 mg PO DAILY PRN PRN Reason: Constipation Bisacodyl (Dulcolax) 10 mg RECTAL DAILY PRN PRN Reason: Constipation Docusate Sodium (Colace) 100 mg PO BID [facility] Ferrous Sulfate (Ferrous Sulfate) 325 mg PO BID [facility] Melatonin (Melatonin) 3 mg PO BEDTIME PRN PRN Reason: Insomnia Metoprolol Tartrate (Lopressor) 25 mg PO Q12H [facility] Nitroglycerin (Nitrostat) 0.4 mg SL ASDIRECTED PRN PRN Reason: Chest Pain Non-Formulary Medication (Atorvastatin [Lipitor]) 20 mg PO DAILY [facility] Non-Formulary Medication (Cholecalciferol (Vitamin D3) [Vitamin D3]) 2,000 unit PO DAILY [facility] Non-Formulary Medication (Diazepam [Valium]) 1 mg PO BID [facility] Non-Formulary Medication (Multivitamins,Ther W-Minerals [Multivitamins With Minerals Hp]) 1 each PO DAILY [facility] Non-Formulary Medication (Omeprazole [Omeprazole]) 20 mg PO DAILY PRN PRN Reason: reflux Non-Formulary Medication (Ropinirole [Requip]) 0.5 mg PO BID [facility] Oxybutynin Chloride (Oxybutynin) 5 mg PO BEDTIME [facility] Oxycodone HCl (Oxycodone) 5 mg PO TID PRN PRN Reason: Pain (severe 7-10) Polyethylene Glycol (Miralax) 17 gm PO DAILY [facility] Ticagrelor (Brilinta) 90 mg PO BID [facility] Tramadol HCl (Ultram) 50 mg PO Q6H PRN PRN Reason: Pain (moderate 4-6) Assessment/Plan Comment:: HPI summary: Mr. Montoya is an 84yoM who prior to recent medical setbacks was residing independently in [place], [place], with his . His prior chronic medical conditions included HTN, HLD, GERD, and RLS. On 01/21/19, he underwent a nuclear stress test for chest pain, which prompted 02/27/19 cardiac catheterization resulting in PCI of the LCx and OM. He then was seen in the [facility] ED on 03/03/19 for recurrent chest pain and subsequently transferred to [facility] for ongoing management of NSTEMI and iron deficiency anemia related to groin hematoma. After admission, he developed acute nausea, imbalance, and double vision and was noted to have gaze palsy. 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 No t-PA was given. He was continued on ASA and statin for CVA prevention along with Brilinta given recent PCI. Loop recroder was implanted to evaluate for atrial fibrillation, which would prompt recommendation for anticoagulation. He was started on diazepam 1He was transferred to inpatient rehab unit for rehabilitation, where good progress was made and decision was made for transfer for ongoing rehabilitation needs in swing bed at [facility]. Hospitalization problems: # Debility # Hx CVA (03/03/19) with subsequent gait imbalance, visual disturbance, and cognitive deficit: Loop monitor placed 03/07/19. ASA, Brilinta. Diazepam for vestibular suppressant with plan to taper down in the future. # CAD / Hx PCI (02/27/19) / Hx NSTEMI (03/03/19): ASA, Brilinta, nitro prn. # HTN: Controlled. Metoprolol. # GERD: Controlled. PPI. # Constipation: Controlled. PEG, docusate. # Gluten sensitivity # Hx chronic pancreatitis # Urinary incontinence: Stable. Oxybutynin. # Subacute blood loss anemia: Related to groin hematoma from catherizations. Refuses blood transfusions. S/p Venofer IV x5 days, ending 03/09/19. 03/14/19 Hgb 9.1. Iron sulfate. # HLD: Atorvastatin. # Vitamin D deficiency: Vitamin D supplementation. # RLS: Controlled. Ropinirole. # Insomnia: Controlled. Melatonin. # Chronic pain: Stable. Tyl prn, oxycodone prn. - Physical therapy - Home safety planning - Continue current medications, as detailed above - Repeat Hgb on 03/21/19 Hospitalization details: # FEN: No IVF. Electrolytes normal 03/07/19. Heart healthy diet. # Code status: DNR/DNI. REFUSES BLOOD TRANSFUSIONS. # Emergency contact: , who was updated at bedside. # Disposition: Admit to swing bed status. Anticipate discharge to home when deemed appropriate.
[2019-03-18] MEDS: Ferrous Sulfate 325 MG Tab PO SCH (18:33)
[2019-03-18] MEDS: Diazepam 5 MG Tab PO SCH ×2 (19:35→21:13)
[2019-03-18] MEDS ORDERED: Oxybutynin 5 MG Tab PO SCH (21:00)
[2019-03-18] MEDS ORDERED: DIAZEPAM 1 MG PO SCH (21:00)
[2019-03-18] MEDS: Metoprolol Tartrate 25 MG Tab PO SCH (21:12)
[2019-03-18] MEDS: Ticagrelor 90 MG Tab PO SCH (21:12)
[2019-03-18] MEDS: Docusate Sodium 100 MG Cap PO SCH (21:12)
[2019-03-18] MEDS: rOPINIRole 0.25 MG Tab PO SCH (21:13)
[2019-03-19 06:08] VITALS: BP 110/64; PULSE 77
[2019-03-19] MEDS: Ferrous Sulfate 325 MG Tab PO SCH ×2 (08:36→17:54)
[2019-03-19] MEDS: rOPINIRole 0.25 MG Tab PO SCH (08:37)
[2019-03-19] MEDS: Docusate Sodium 100 MG Cap PO SCH (08:38)
[2019-03-19] MEDS: Ticagrelor 90 MG Tab PO SCH (08:38)
[2019-03-19] MEDS: Diazepam 5 MG Tab PO SCH (08:39)
[2019-03-19] MEDS: Metoprolol Tartrate 25 MG Tab PO SCH (08:40)
[2019-03-19] MEDS ORDERED: atorvaSTATin 10 MG Tab PO SCH (09:00)
[2019-03-19] MEDS ORDERED: Polyethylene Glycol 3350 Powder 238 GM Bot PO SCH (09:00)
[2019-03-19] MEDS ORDERED: Aspirin 81 MG Tab.EC PO SCH (09:00)
[2019-03-19] MEDS ORDERED: Multivitamins with Minerals/Iron/Folic Acid/Lycopene Tab PO SCH (09:00)
[2019-03-19] MEDS ORDERED: Cholecalciferol (Vitamin D3) 25 MCG Tab PO SCH (09:00)
--- NOTE | 2019-03-19 20:17 | PCM.DCSUM1 ---
Discharge Summary - Hospital Course Free Text/Narrative:: Date of admission: 03/18/19 Date of discharge: 03/19/19 Admission diagnoses: # Debility # Hx CVA (03/03/19) with subsequent gait imbalance, visual disturbance, and cognitive deficit # CAD # Hx PCI (02/27/19) # Hx NSTEMI (03/03/19) # HTN # GERD # Constipation # Gluten sensitivity # Hx chronic pancreatitis # Urinary incontinence # Subacute blood loss anemia # HLD # Vitamin D deficiency # RLS # Insomnia # Chronic pain. Discharge diagnoses: # Debility # Hx CVA (03/03/19) with subsequent gait imbalance, visual disturbance, and cognitive deficit # CAD # Hx PCI (02/27/19) # Hx NSTEMI (03/03/19) # HTN # GERD # Constipation # Gluten sensitivity # Hx chronic pancreatitis # Urinary incontinence # Subacute blood loss anemia # HLD # Vitamin D deficiency # RLS # Insomnia # Chronic pain. Consultations: Physical therapy branch services manager Hospital course: Mr. Montoya is an 84yoM who prior to recent medical setbacks was residing independently in [place], [place], with his . His prior chronic medical conditions included HTN, HLD, GERD, and RLS. On 01/21/19, he underwent a nuclear stress test for chest pain, which prompted 02/27/19 cardiac catheterization resulting in PCI of the LCx and OM. He then was seen in the [facility] ED on 03/03/19 for recurrent chest pain and subsequently transferred to [facility] for ongoing management of NSTEMI and iron deficiency anemia related to groin hematoma. After admission, he developed acute nausea, imbalance, and double vision and was noted to have gaze palsy. 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 No t-PA was given. He was continued on ASA and statin for CVA prevention along with Brilinta given recent PCI. Loop recroder was implanted to evaluate for atrial fibrillation, which would prompt recommendation for anticoagulation. He was started on diazepam 1He was transferred to inpatient rehab unit for rehabilitation, where good progress was made and decision was made for transfer for ongoing rehabilitation needs in swing bed at [facility]. During his short stay, it was determined by physical therapy and clinical social work therapist staff and conversations with the patient and that he is appropriate for discharge to home. No medication changes were made during his stay and no complications arose. Discharge and follow-up recommendations: - Discharge to home - New medications at discharge: None since discharge from [place] inpatient rehab on 03/18/19, but medications were reviewed in detail with patient/ and Annalisa Sifuentes, PharmD, [facility] to ensure accuracy - Follow-up with AIR[facility] Esteban, per patient request in absence of PCP Dr. Yossi Torres, within 1 week - Recommend repeat hemoglobin at follow-up Review of conditions: # Debility # Hx CVA (03/03/19) with subsequent gait imbalance, visual disturbance, and cognitive deficit: Loop monitor placed 03/07/19. ASA, Brilinta. Diazepam for vestibular suppressant with plan to taper down in the future. # CAD / Hx PCI (02/27/19) / Hx NSTEMI (03/03/19): ASA, Brilinta, nitro prn. # HTN: Controlled. Metoprolol. # GERD: Controlled. PPI. # Constipation: Controlled. PEG, docusate. # Gluten sensitivity # Hx chronic pancreatitis # Urinary incontinence: Stable. Oxybutynin. # Subacute blood loss anemia: Related to groin hematoma from catherizations. Refuses blood transfusions. S/p Venofer IV x5 days, ending 03/09/19. 03/14/19 Hgb 9.1. Iron sulfate. # HLD: Atorvastatin. # Vitamin D deficiency: Vitamin D supplementation. # RLS: Controlled. Ropinirole. # Insomnia: Controlled. Melatonin. # Chronic pain: Stable. Tyl prn, oxycodone prn. - Discharge Data Discharge Date: 03/19/19 Discharge Disposition: Home, Self-Care 01 Condition: Good - Patient Instructions Diet: Heart Healthy Diet Activity: As Tolerated Showering/Bathing: May Shower Wound/Incision Care: Keep Operative Site/Wound Site Clean and Dry - Discharge Plan *PRESCRIPTION DRUG MONITORING PROGRAM REVIEWED*: Not Applicable *COPY OF PRESCRIPTION DRUG MONITORING REPORT IN PATIENT IRENE: Not Applicable Prescriptions/Med Rec: atorvaSTATin [Lipitor] 20 mg PO DAILY #30 tablet Diazepam [Valium] 1 mg PO BID #60 tablet Ferrous Sulfate 325 mg PO BID #60 tablet Melatonin 3 mg PO BEDTIME PRN #30 tablet PRN Reason: Insomnia Metoprolol Tartrate [Lopressor] 25 mg PO Q12H #60 tablet Nitroglycerin 0.4 mg SL ASDIRECTED PRN #25 tab.subl PRN Reason: Chest Pain Omeprazole 20 mg PO DAILY PRN #30 tablet. PRN Reason: GERD Oxybutynin 5 mg PO BEDTIME #30 tablet rOPINIRole [Requip] 0.5 mg PO BID #60 tablet Ticagrelor [Brilinta] 90 mg PO BID #60 tablet Home Medications: Home Meds Polyethylene Glycol 3350 [MiraLAX] 17 gm PO DAILY 12/30/17 [History] Acetaminophen 650 mg PO Q4H PRN 03/17/19 [History] Aspirin [Halfprin] 81 mg PO DAILY 03/17/19 [History] Cholecalciferol (Vitamin D3) [Vitamin D3] 2,000 unit PO DAILY 03/17/19 [History] Docusate Sodium [Colace] 100 mg PO BID 03/17/19 [History] Multivitamins,Ther w-Minerals [Multivitamins with Minerals HP] 1 each PO DAILY 03/17/19 [History] oxyCODONE 5 mg PO TID PRN 03/17/19 [History] Bisacodyl [Dulcolax] 10 mg PO DAILY PRN 03/18/19 [History] Bisacodyl [Dulcolax] 10 mg RC DAILY PRN 03/18/19 [History] traMADol [Ultram] 50 mg PO Q6H PRN 03/18/19 [History] Diazepam [Valium] 1 mg PO BID #60 tablet 03/19/19 [Rx] Ferrous Sulfate 325 mg PO BID #60 tablet 03/19/19 [Rx] Melatonin 3 mg PO BEDTIME PRN #30 tablet 03/19/19 [Rx] Metoprolol Tartrate [Lopressor] 25 mg PO Q12H #60 tablet 03/19/19 [Rx] Nitroglycerin 0.4 mg SL ASDIRECTED PRN #25 tab.subl 03/19/19 [Rx] Omeprazole 20 mg PO DAILY PRN #30 tablet. 03/19/19 [Rx] Oxybutynin 5 mg PO BEDTIME #30 tablet 03/19/19 [Rx] Ticagrelor [Brilinta] 90 mg PO BID #60 tablet 03/19/19 [Rx] atorvaSTATin [Lipitor] 20 mg PO DAILY #30 tablet 03/19/19 [Rx] rOPINIRole [Requip] 0.5 mg PO BID #60 tablet 03/19/19 [Rx] - Discharge Summary/Plan Comment DC Time >30 min.: Yes - General Info Subjective Update: Mr. Montoya denies any new concerns today. Continues to have blurry vision, but denies other neurological complaints. Nausea controlled. Feels his strength is slowly getting back to baseline. Tolerating diet well. Ambulating without significant difficulty. - Patient Data Vitals - Most Recent: Last Vital Signs Temp 37.1 C 03/19/19 06:07 Pulse 77 03/19/19 08:40 Resp 16 03/19/19 06:07 BP 110/64 03/19/19 08:40 Pulse Ox 98 03/19/19 06:07 Weight - Most Recent: 80.785 kg I&O - Last 24 hours: Intake & Output 03/19/19 03/19/19 03/19/19 06:59 14:59 22:59 Intake Total 0 440 Balance 0 440 Med Orders - Current: Current Medications Discontinued Medications Acetaminophen (Tylenol) 650 mg PO Q4H PRN PRN Reason: Pain (mild 1-3) Aspirin (Halfprin) 81 mg PO DAILY [facility] Last Admin: 03/19/19 08:40 Dose: 81 mg Atorvastatin Calcium (Lipitor) 20 mg PO DAILY [facility] Last Admin: 03/19/19 08:38 Dose: 20 mg Bisacodyl (Dulcolax) 10 mg PO DAILY PRN PRN Reason: Constipation Bisacodyl (Dulcolax) 10 mg RECTAL DAILY PRN PRN Reason: Constipation Cholecalciferol (Vitamin D3) 50 mcg PO DAILY [facility] Last Admin: 03/19/19 08:37 Dose: 50 mcg Diazepam (Valium.) 1.25 mg PO BID [facility] Last Admin: 03/19/19 08:39 Dose: 1.25 mg Docusate Sodium (Colace) 100 mg PO BID [facility] Last Admin: 03/19/19 08:38 Dose: 100 mg Ferrous Sulfate (Ferrous Sulfate) 325 mg PO BIDMEALS [facility] Last Admin: 03/19/19 17:54 Dose: 325 mg Melatonin (Melatonin) 3 mg PO BEDTIME PRN PRN Reason: Insomnia Metoprolol Tartrate (Lopressor) 25 mg PO Q12H [facility] Last Admin: 03/19/19 08:40 Dose: 25 mg Multivitamins/Minerals (Centrum) 1 tab PO DAILY [facility] Last Admin: 03/19/19 08:38 Dose: 1 tab Nitroglycerin (Nitrostat) 0.4 mg SL ASDIRECTED PRN PRN Reason: Chest Pain Non-Formulary Medication (Diazepam [Valium]) 1 mg PO BID [facility] Omeprazole (Omeprazole) 20 mg PO DAILY PRN PRN Reason: reflux Oxybutynin Chloride (Oxybutynin) 5 mg PO BEDTIME [facility] Last Admin: 03/18/19 21:12 Dose: 5 mg Oxycodone HCl (Oxycodone) 5 mg PO TID PRN PRN Reason: Pain (severe 7-10) Polyethylene Glycol (Miralax) 17 gm PO DAILY [facility] Last Admin: 03/19/19 08:36 Dose: 17 gm Ropinirole HCl (Requip) 0.5 mg PO BID [facility] Last Admin: 03/19/19 08:37 Dose: 0.5 mg Ticagrelor (Brilinta) 90 mg PO BID [facility] Last Admin: 03/19/19 08:38 Dose: 90 mg Tramadol HCl (Ultram) 50 mg PO Q6H PRN PRN Reason: Pain (moderate 4-6) - Exam Physical Findings Comments:: GENERAL: Well-appearing elderly white male sitting in bedside chair in no acute distress. HEENT: Normocephalic, atraumatic. Conjunctiva clear. Nares patent without discharge. Mucous membranes moist, posterior pharynx unremarkable. NECK: Supple, no masses. CV: Regular rate and rhythm, no murmurs, rubs, or gallops. 2+ radial pulses. PULMONARY: Normal effort, clear to auscultation bilaterally, no wheezes, rales, or rhonchi. ABDOMEN: Positive bowel sounds, soft, nontender, nondistended. EXTREMITIES: No edema, cyanosis, or clubbing. MUSCULOSKELETAL: Moves all extremities well. NEUROLOGICAL: CN II-XII intact aside from sluggish EOMI most notably in abduction. Normal muscle bulk, normal muscle tone, muscle strength 5/5. Sensation intact in all extremities to touch. Gait without abnormality. DERMATOLOGIC: No rashes or suspicious lesions in exposed areas. PSYCHIATRIC: Alert, interactive, appropriate affect.
== END 2019-03-19 18:35 | disposition home or self-care (01) | DRG 948 ==
LOC: KA.MS 12:40
PROVIDERS: ADMIT Family Medicine; ATTEND Family Medicine
DX: R53.81 Other malaise (principal); D62 Acute posthemorrhagic anemia; I10 Essential (primary) hypertension; E78.5 Hyperlipidemia, unspecified; K21.9 Gastro-esophageal reflux disease without esophagitis; G25.81 Restless legs syndrome; D50.9 Iron deficiency anemia, unspecified; I69.398 Other sequelae of cerebral infarction; H53.8 Other visual disturbances; H54.7 Unspecified visual loss; G47.30 Sleep apnea, unspecified; K59.09 Other constipation; M19.90 Unspecified osteoarthritis, unspecified site; F41.9 Anxiety disorder, unspecified; R35.0 Frequency of micturition; H53.2 Diplopia; G89.29 Other chronic pain; E55.9 Vitamin D deficiency, unspecified; R53.1 Weakness; I69.319 Unspecified symptoms and signs involving cognitive functions following cerebral infarction; I25.10 Atherosclerotic heart disease of native coronary artery without angina pectoris; R32 Unspecified urinary incontinence; G47.00 Insomnia, unspecified; I25.2 Old myocardial infarction; Z66 Do not resuscitate; Z53.1 Procedure and treatment not carried out because of patient's decision for reasons of belief and group pressure; Z95.5 Presence of coronary angioplasty implant and graft; Z91.018 Allergy to other foods; Z79.82 Long term (current) use of aspirin; Z79.899 Other long term (current) drug therapy; Z95.828 Presence of other vascular implants and grafts; Z90.49 Acquired absence of other specified parts of digestive tract; Z96.619 Presence of unspecified artificial shoulder joint; Z96.89 Presence of other specified functional implants
CPT/HCPCS: 97161-GP; A9270-GY

== ENCOUNTER 2021-05-19 19:25 | Emergency (ER) | payer MEDICARE, OTHER ==
--- NOTE | 2021-05-19 20:28 | EDM.PDOC ---
ED HPI GENERAL MEDICAL PROBLEM - General Chief Complaint: General Stated Complaint: RIGHT ARM SKIN TEAR Time Seen by Provider: 05/19/21 20:15 Source of Information: Reports: Patient, Significant Other History Limitations: Reports: No Limitations - History of Present Illness INITIAL COMMENTS - FREE TEXT/NARRATIVE: Patient presents with persistent bleeding from a skin tear on his right arm. He takes Eliquis for A Fib. Yesterday he was working on his garage and a board fell against his arm and caused a skin tear. This was more than 24 hours ago. He thinks his tetanus is about 10 years ago. - Related Data Allergies Allergy/AdvReac Type Severity Reaction Status Date / Time gluten Allergy Other Verified 05/19/21 20:03 Home Meds: Home Meds polyethylene glycoL 3350 [MiraLAX] 17 gm PO DAILY 12/30/17 [History] Acetaminophen 650 mg PO Q4H PRN 03/17/19 [History] Aspirin [Halfprin] 81 mg PO DAILY 03/17/19 [History] Cholecalciferol (Vitamin D3) [Vitamin D3] 2,000 unit PO DAILY 03/17/19 [History] Docusate Sodium [Colace] 100 mg PO BID 03/17/19 [History] Multivitamins,Ther w-Minerals [Multivitamins with Minerals HP] 1 each PO DAILY 03/17/19 [History] oxyCODONE 5 mg PO TID PRN 03/17/19 [History] bisacodyL [Dulcolax] 10 mg PO DAILY PRN 03/18/19 [History] bisacodyL [Dulcolax] 10 mg RC DAILY PRN 03/18/19 [History] traMADol [Ultram] 50 mg PO Q6H PRN 03/18/19 [History] Ferrous Sulfate 325 mg PO BID #60 tablet 03/19/19 [Rx] Melatonin 3 mg PO BEDTIME PRN #30 tablet 03/19/19 [Rx] Metoprolol Tartrate [Lopressor] 25 mg PO Q12H #60 tablet 03/19/19 [Rx] Nitroglycerin 0.4 mg SL ASDIRECTED PRN #25 tab.subl 03/19/19 [Rx] Omeprazole 20 mg PO DAILY PRN #30 tablet. 03/19/19 [Rx] Oxybutynin 5 mg PO BEDTIME #30 tablet 03/19/19 [Rx] Ticagrelor [Brilinta] 90 mg PO BID #60 tablet 03/19/19 [Rx] atorvaSTATin [Lipitor] 20 mg PO DAILY #30 tablet 03/19/19 [Rx] diazePAM [Valium] 1 mg PO BID #60 tablet 03/19/19 [Rx] rOPINIRole [Requip] 0.5 mg PO BID #60 tablet 03/19/19 [Rx] Past Medical History HEENT History: Reports: Impaired Vision, Sinusitis Cardiovascular History: Reports: Hypertension, Stents, Other (See Below) Other Cardiovascular History: Loop Monitor Respiratory History: Reports: Sleep Apnea, Other (See Below) Other Respiratory History: Sinus Gastrointestinal History: Reports: Chronic Constipation, Pancreatitis Genitourinary History: Reports: Prostate Disorder, Other (See Below) Other Genitourinary History: urinary frequency Musculoskeletal History: Reports: Arthritis, Gout, Osteoarthritis Neurological History: Reports: CVA Psychiatric History: Reports: Anxiety - Infectious Disease History Infectious Disease History: Reports: Measles - Past Surgical History Head Surgeries/Procedures: Reports: None HEENT Surgical History: Reports: None Other HEENT Surgeries/Procedures: double vision d/t stroke Cardiovascular Surgical History: Reports: None, Other (See Below) Other Cardiovascular Surgeries/Procedures: Angiogram 02/27/2019 with stent placement, Reveal loop monitor insertion on 03/07/19. 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 Musculoskeletal Surgical History: Reports: Carpal Tunnel, Shoulder Replacement - Past Imaging History Past Imaging History: Reports: CAT Scan, MRI Social & Family History - Family History HEENT: Reports: Cataract Musculoskeletal: Reports: Arthritis Oncologic: Reports: Bone, Lung, Other (See Below) Other Oncologic Family History: uncle several years ago - Tobacco Use Tobacco Use Status *Q: Former Tobacco User Used Tobacco, but Quit: Yes Month/Year Tobacco Last Used: 1959 - Caffeine Use Caffeine Use: Reports: Coffee, Soda Other Caffeine Use: regular - Recreational Drug Use Recreational Drug Use: No - Living Situation & Occupation Living situation: Reports: , with Spouse Occupation: Retired ED ROS GENERAL - Review of Systems Review Of Systems: See Below Constitutional: Denies: Fever, Chills, Malaise, Weakness HEENT: Denies: Ear Pain, Throat Pain, Vision Change Respiratory: Denies: Shortness of Breath, Cough Cardiovascular: Denies: Chest Pain, Lightheadedness, Syncope GI/Abdominal: Denies: Abdominal Pain, Vomiting Musculoskeletal: Denies: Neck Pain, Shoulder Pain, Arm Pain, Back Pain Skin: Denies: Cyanosis, Jaundice, Mottled, Pallor, Diaphoresis Neurological: Denies: Confusion, Dizziness, Headache, Seizure, Syncope, Trouble Speaking, Difficulty Walking Psychiatric: Denies: Agitation, Anxiety, Confusion Hematologic/Lymphatic: Reports: Easy Bleeding ED EXAM, GENERAL - Physical Exam Exam: See Below Exam Limited By: No Limitations General Appearance: Alert, WD/WN, No Apparent Distress Eye Exam: Bilateral Eye: EOMI, Normal Inspection, PERRL Ears: Normal External Exam, Hearing Grossly Normal Nose: Normal Inspection, No Blood Throat/Mouth: Normal Inspection, Normal Lips, Normal Voice, No Airway Compromise Head: Atraumatic, Normocephalic Neck: Normal Inspection, Full Range of Motion Respiratory/Chest: No Respiratory Distress, Lungs Clear, Normal Breath Sounds, No Accessory Muscle Use Cardiovascular: No Murmur, Irregularly Irregular Back Exam: Normal Inspection, Full Range of Motion Extremities: Normal Range of Motion, Non-Tender, Other (right proximal dorsal forearm has a very superficial completely sloughed area 3x4cm in size. I removed dressing and it is still oozing slowly. No skin to approximate. It is more like an abrasion.) Neurological: Alert, Oriented, Normal Cognition, No Motor/Sensory Deficits Psychiatric: Normal Affect, Normal Mood Skin Exam: Warm, Dry, Normal Color, No Rash Course - Vital Signs Last Recorded V/S: Last Vital Signs Temp 97.5 F 05/19/21 19:30 Pulse 84 05/19/21 19:30 Resp 19 05/19/21 19:30 BP 132/61 05/19/21 19:30 Pulse Ox 95 05/19/21 19:30 - Re-Assessments/Exams Free Text/Narrative Re-Assessment/Exam: 05/19/21 20:34 We discussed findings and treatment plan. Arm was cleaned and bandaged with petrolatum dressing, gauze and moderate compression. He will change the dressing in 36 hours and redress as needed. Discharged to home in stable condition. 05/19/21 20:38 TDAP given. Departure - Departure Time of Disposition: 20:36 Disposition: Home, Self-Care 01 Condition: Good Clinical Impression: On anticoagulant therapy Skin tear of forearm without complication Qualifiers: Encounter type: initial encounter Laterality: right Qualified Code(s): S51.811A - Laceration without foreign body of right forearm, initial encounter - Discharge Information Instructions: Skin Tear, [id number] Referrals: Arabella Walton MD [Primary Care Provider] - Additional Instructions: Change the dressing in 36 hours. Clean softly and redress daily until healed. If any worsening, recheck in clinic or ER as needed. Sepsis Event Note (ED) - Focused Exam Vital Signs: Vital Signs Temp Pulse Resp BP Pulse Ox 05/19/21 19:30 97.5 F 84 19 132/61 95
[2021-05-19] MEDS: Diphtheria,Pertussis(Acell),Tetanus Vaccine 0.5 ML Syringe IM ONE (20:36)
[2021-05-19 20:47] VITALS: BP 149/90; PULSE 76
== END 2021-05-19 20:45 | disposition home or self-care (01) ==
LOC: KA.ED 19:25
DX: S51.811A Laceration without foreign body of right forearm, initial encounter (principal); I10 Essential (primary) hypertension; M10.9 Gout, unspecified; I48.91 Unspecified atrial fibrillation; Z23 Encounter for immunization; Z87.891 Personal history of nicotine dependence; Z91.018 Allergy to other foods; Z79.82 Long term (current) use of aspirin; Z79.899 Other long term (current) drug therapy; Z79.01 Long term (current) use of anticoagulants; W20.8XXA Other cause of strike by thrown, projected or falling object, initial encounter; Y92.59 Other trade areas as the place of occurrence of the external cause
CPT/HCPCS: 90471; 90715; 99282

== ENCOUNTER 2021-05-21 08:05 | Emergency (ER) | payer MEDICARE, OTHER ==
[2021-05-21 08:43] VITALS: PULSE 87
[2021-05-21 09:01] VITALS: BP 116/57
--- NOTE | 2021-05-21 09:05 | EDM.PDOC ---
ED HPI GENERAL MEDICAL PROBLEM - General Chief Complaint: General Stated Complaint: hand swelling Time Seen by Provider: 05/21/21 08:30 Source of Information: Reports: Patient, Family () History Limitations: Reports: No Limitations - History of Present Illness INITIAL COMMENTS - FREE TEXT/NARRATIVE: 86-year-old male presents to the emergency room for swelling in his right upper extremity. He was seen in the emergency room 48 hours ago for a skin tear overlying his right elbow. This was covered with a Telfa and Coban. He has had swelling distally in the forearm and fingers since that time. This is likely caused by restriction from the Coban being wrapped too tightly. He has a compressive circumferential ring around the area where the Coban was. He is able to move all his fingers well. He is on Eliquis. He denies any fever or chills. No warmth to the arm. No shortness of breath or chest pain complaints. Onset Date: 05/19/21 Duration: Day(s):, Getting Worse Location: Reports: Upper Extremity, Right Quality: Reports: Ache Severity: Moderate Improves with: Reports: None Worsens with: Reports: None Context: Reports: Other (skin tear from piece of metal falling on arm creating a skin tear.) Associated Symptoms: Reports: No Other Symptoms Treatments [employer]: Reports: Other (see below) (dressing/coban) Right Lower Arm Pain Score (Numeric/FACES): 6 - Related Data Allergies Allergy/AdvReac Type Severity Reaction Status Date / Time gluten Allergy Other Verified 05/19/21 20:03 Home Meds: Home Meds polyethylene glycoL 3350 [MiraLAX] 17 gm PO DAILY 12/30/17 [History] Aspirin [Halfprin] 81 mg PO DAILY 03/17/19 [History] oxyCODONE 5 mg PO TID PRN 03/17/19 [History] Melatonin 3 mg PO BEDTIME PRN #30 tablet 03/19/19 [Rx] Nitroglycerin 0.4 mg SL ASDIRECTED PRN #25 tab.subl 03/19/19 [Rx] Omeprazole 20 mg PO DAILY PRN #30 tablet. 03/19/19 [Rx] Apixaban [Eliquis] 5 mg PO BID 05/21/21 [History] Clopidogrel Bisulfate [Plavix] 75 mg PO DAILY 05/21/21 [History] Metoprolol Tartrate 12.5 mg PO BID 05/21/21 [History] Pregabalin [Lyrica] 50 mg PO BID 05/21/21 [History] Prochlorperazine [Compazine] 10 mg PO Q6H PRN 05/21/21 [History] Tamsulosin [Tamsulosin 24 Hr] 0.4 mg PO BID 05/21/21 [History] Past Medical History HEENT History: Reports: Impaired Vision, Sinusitis Cardiovascular History: Reports: Hypertension, Stents, Other (See Below) Other Cardiovascular History: Loop Monitor Respiratory History: Reports: Sleep Apnea, Other (See Below) Other Respiratory History: Sinus Gastrointestinal History: Reports: Chronic Constipation, Pancreatitis Genitourinary History: Reports: Prostate Disorder, Other (See Below) Other Genitourinary History: urinary frequency Musculoskeletal History: Reports: Arthritis, Gout, Osteoarthritis Neurological History: Reports: CVA Psychiatric History: Reports: Anxiety - Infectious Disease History Infectious Disease History: Reports: Measles - Past Surgical History Head Surgeries/Procedures: Reports: None HEENT Surgical History: Reports: None Other HEENT Surgeries/Procedures: double vision d/t stroke Cardiovascular Surgical History: Reports: None, Other (See Below) Other Cardiovascular Surgeries/Procedures: Angiogram 02/27/2019 with stent placement, Reveal loop monitor insertion on 03/07/19. 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, sites lower back R lat a spect and L lower back 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 - Past Imaging History Past Imaging History: Reports: CAT Scan, MRI Social & Family History - Family History HEENT: Reports: Cataract Musculoskeletal: Reports: Arthritis Oncologic: Reports: Bone, Lung, Other (See Below) Other Oncologic Family History: uncle several years ago - Tobacco Use Tobacco Use Status *Q: Never Tobacco User Second Hand Smoke Exposure: No - Caffeine Use Caffeine Use: Reports: Coffee, Soda, Tea Other Caffeine Use: regular - Recreational Drug Use Recreational Drug Use: No - Living Situation & Occupation Living situation: Reports: , with Spouse Occupation: Retired ED ROS GENERAL - Review of Systems Review Of Systems: Comprehensive ROS is negative, except as noted in HPI. ED EXAM, GENERAL - Physical Exam Exam: See Below Exam Limited By: No Limitations General Appearance: Alert, WD/WN, No Apparent Distress Ears: Hearing Grossly Normal Nose: Normal Inspection Throat/Mouth: Normal Voice, No Airway Compromise Head: Atraumatic Neck: Normal Inspection Respiratory/Chest: No Respiratory Distress Cardiovascular: Normal Peripheral Pulses Extremities: Pedal Edema, Other (There is a swelling in the right upper extremity extending from the forearm down into the hand. Patient has bruising underlying the skin of both arms due to his anticoagulation therapy. His right arm has a constricting band where there was a Coban wrapped around it that was likely recurrent causin). No: Increased Warmth, Redness Neurological: Alert, Oriented, CN II-XII Intact, No Motor/Sensory Deficits Psychiatric: Normal Affect, Normal Mood Skin Exam: Ecchymosis, Wound/Incision (Small skin tear superficial overlying the right forearm just distal to the elbow) Lymphatic: No Adenopathy Course - Vital Signs Last Recorded V/S: Last Vital Signs Temp 97.4 F 05/21/21 08:07 Pulse 87 05/21/21 08:43 Resp 18 05/21/21 08:43 BP 116/57 L 05/21/21 09:01 Pulse Ox 97 05/21/21 08:43 - Orders/Labs/Meds Labs: Laboratory Tests 05/21/21 05/21/21 Range/Units 08:24 08:24 WBC 6.16 (5.00-10.00) 10^3/uL RBC 3.04 L (4.50-6.00) 10^6/uL Hgb 10.6 L D (13.0-17.0) g/dL Hct 31.6 L (40.0-52.0) % MCV 103.9 H D (82.0-92.0) fL MCH 34.9 H (27.0-31.0) pg MCHC 33.5 (32.0-36.0) g/dL RDW 12.8 (11.5-14.5) % Plt Count 152 (150-400) 10^3/uL MPV 9.7 (7.4-10.4) fL Immature Gran % (Auto) 0.2 (0.0-5.0) % Neut % (Auto) 57.5 (50.0-70.0) % Lymph % (Auto) 33.9 (20.0-40.0) % Early % (Auto) 6.8 (2.0-8.0) % Eos % (Auto) 1.3 (1.0-3.0) % Baso % (Auto) 0.3 (0.0-1.0) % Neut # (Auto) 3.54 (2.50-7.00) 10^3/uL Lymph # (Auto) 2.09 (1.00-4.00) 10^3/uL Early # (Auto) 0.42 (0.10-0.80) 10^3/uL Eos # (Auto) 0.08 L (0.10-0.30) 10^3/uL Baso # (Auto) 0.02 (0.00-0.10) 10^3/uL Immature Gran # (Auto) 0.01 (0.00-0.50) 10^3/uL APTT 27.6 (22.8-31.4) SEC - Re-Assessments/Exams Free Text/Narrative Re-Assessment/Exam: 05/21/21 09:17 Skin tear was examined light Telfa was placed over it with 3 inch Cory lightly wrapped. Departure - Departure Time of Disposition: 09:17 Disposition: Still A Patient 30 Condition: Good Clinical Impression: Swelling of right upper extremity Skin tear of elbow without complication Qualifiers: Encounter type: initial encounter Laterality: right Qualified Code(s): S51.011A - Laceration without foreign body of right elbow, initial encounter - Discharge Information Instructions: Deep Vein Thrombosis Forms: ED Department Discharge Care Plan Goals: 1. Swelling that occurred in your right arm was likely caused from the Coban being wrapped around your forearm too tightly. This is causing restriction of blood flow and swelling in your right forearm and hand. We remove this today and put a new light dressing of Telfa and a 3 inch Cory over your skin tear. I would recommend that you keep the arm elevated above your heart for 48 hours to help reduce the swelling. We'll give you some dressings to rechange in 3 days. These do not need to be wrapped tightly. 2. If the swelling persists despite the dressing change and elevation I would recommend getting a Doppler ultrasound on Sunday or Sunday when you return back to [place] to make sure there is no underlying DVT. Sepsis Event Note (ED) - Evaluation Sepsis Screening Result: No Definite Risk - Focused Exam Vital Signs: Vital Signs Temp Pulse Resp BP Pulse Ox 05/21/21 09:01 116/57 L 05/21/21 08:43 87 18 118/52 L 97 05/21/21 08:07 97.4 F 78 20 118/68 100 - Assessment/Plan Assessment:: 1. Skin tear right elbow 2. Swelling right upper extremity Plan: 1. Swelling that occurred in your right arm was likely caused from the Coban being wrapped around your forearm too tightly. This is causing restriction of blood flow and swelling in your right forearm and hand. We remove this today and put a new light dressing of Telfa and a 3 inch Cory over your skin tear. I would recommend that you keep the arm elevated above your heart for 48 hours to help reduce the swelling. We'll give you some dressings to rechange in 3 days. These do not need to be wrapped tightly. 2. If the swelling persists despite the dressing change and elevation I would recommend getting a Doppler ultrasound on Sunday or Sunday when you return back to [place] to make sure there is no underlying DVT.
== END 2021-05-21 09:15 | disposition home or self-care (01) ==
LOC: KA.ED 08:05
DX: S51.011A Laceration without foreign body of right elbow, initial encounter (principal); M79.89 Other specified soft tissue disorders; I10 Essential (primary) hypertension; M10.9 Gout, unspecified; Z86.73 Personal history of transient ischemic attack (TIA), and cerebral infarction without residual deficits; Z91.018 Allergy to other foods; Z79.82 Long term (current) use of aspirin; Z79.01 Long term (current) use of anticoagulants; Z79.02 Long term (current) use of antithrombotics/antiplatelets; Z79.899 Other long term (current) drug therapy; W20.8XXA Other cause of strike by thrown, projected or falling object, initial encounter
CPT/HCPCS: 36415; 85025; 85730; 99283; 99284